=== PATIENT | female | born 1990 | race African-American/Black ===

== ENCOUNTER 2022-12-12 22:02 | Emergency (ER) | payer OTHER ==
[~2022-12-12] VITALS: Ht 165.1 cm; Wt 77.3 kg
[2022-12-12 22:03] VITALS: TEMP 98.6
[2022-12-12] MEDS ORDERED: CALA180L6 TP (22:07)
[2022-12-12] MEDS ORDERED: DiphenhydrAMINE HCL 50 MG CAPSULE PO ONE (22:45)
[2022-12-12] MEDS ORDERED: DEXAMETHASONE SOD PHOS 4 MG/ML 5 ML VIAL IM ONE (22:45)
[2022-12-12] MEDS ORDERED: FAMOTIDINE 20 MG TABLET PO ONE (22:45)
[2022-12-12] MEDS ORDERED: METH4TAB3 PO (22:46)
[2022-12-12] MEDS ORDERED: FAMO20 PO (22:46)
[2022-12-12] MEDS ORDERED: DIPH25TA20 PO (22:46)
[2022-12-12 23:10] VITALS: BP 138/84; PULSE 102; RESP 16
== END 2022-12-12 23:13 | disposition home or self-care (01) ==
LOC: EMS 22:03
DX: T78.40XA Allergy, unspecified, initial encounter (principal); Z91.018 Allergy to other foods; X58.XXXA Exposure to other specified factors, initial encounter
CPT/HCPCS: 99283; 96372; J1100

== ENCOUNTER 2023-09-18 19:50 | Emergency (ER) | payer OTHER ==
[~2023-09-18 19:50] MED LIST: CALA180L6 TP; DIPH25TA20 PO; FAMO20 PO; METH4TAB3 PO
== END 2023-09-18 20:44 | disposition left against medical advice (07) ==
LOC: EMS 19:52
DX: Z04.89 Encounter for examination and observation for other specified reasons (principal); Z53.21 Procedure and treatment not carried out due to patient leaving prior to being seen by health care provider